=== PATIENT | female | born 1930 | race Caucasian/White ===

== ENCOUNTER 2017-11-13 21:28 | Emergency (ER) | payer OTHER, BC ==
[2017-11-13] MEDS ORDERED: TETANUS & DIPHTHERIA TOX,ADULT 0.5 ML VIAL ONE (23:02)
--- NOTE | 2017-11-13 23:25 | EDPHYS ---
Physician Documentation [facility] Name: Lala Hughes Age: 87 yrs Sex: Female : 1930 Arrival Date: 11/13/2017 Time: 21:29 Bed 23 Private MD: ED Physician Pasquale Mayer HPI: 11/13 22:00 This 87 yrs old Female presents to ER via Wheelchair with complaints of Fall pm1 Injury. 22:00 Details of fall: The patient fell from an upright position, while standing. Onset: The pm1 symptoms/episode began/occurred just prior to arrival. Associated injuries: The patient sustained injury to the head, laceration, 1.5 cm(s), of the forehead. The patient has experienced similar episodes in the past, a few times. The patient has not recently seen a physician. Patient was standing up from the toilet and lost her balance falling forward and hitting her head on the floor. No LOC. No neck pain. Patient with bruise and laceration to right side of the forehead. Historical: - Allergies: 22:35 No Known Allergies; tl3 - Home Meds: 22:35 gabapentin 300 mg Oral cap four times a day [Active]; phenobarbital 32.4 mg Oral tab tl3 once daily [Active]; - PMHx: 22:35 Hypertension; neuropathy; tl3 - PSHx: 22:35 Appendectomy; Hysterectomy; Cholecystectomy; tl3 - Immunization history:: Adult Immunizations not up to date, Last tetanus immunization: > 10 years ago. - Social history:: Smoking status: Patient/guardian denies using tobacco, never smoked. ROS: 22:00 Constitutional: Negative for fever, chills, and weight loss, Eyes: Negative for injury, pm1 pain, redness, and discharge, ENT: Negative for injury, pain, and discharge, Neck: Negative for injury, pain, and swelling, Cardiovascular: Negative for chest pain, palpitations, and edema, Respiratory: Negative for shortness of breath, cough, wheezing, and pleuritic chest pain, Abdomen/GI: Negative for abdominal pain, nausea, vomiting, diarrhea, and constipation, Back: Negative for injury and pain, MS/Extremity: Negative for injury and deformity. 22:00 Skin: Positive for laceration(s), of the forehead. 22:00 Neuro: Positive for headache. Exam: 22:00 Constitutional: This is a well developed, well nourished patient who is awake, alert, pm1 and in no acute distress. 22:00 Eyes: Pupils equal round and reactive to light, extra-ocular motions intact. Lids and lashes normal. Conjunctiva and sclera are non-icteric and not injected. Cornea within normal limits. Periorbital areas with no swelling, redness, or edema. ENT: Nares patent. No nasal discharge, no septal abnormalities noted. Tympanic membranes are normal and external auditory canals are clear. Oropharynx with no redness, swelling, or masses, exudates, or evidence of obstruction, uvula midline. Mucous membranes moist. Neck: Trachea midline, no thyromegaly or masses palpated, and no cervical lymphadenopathy. Supple, full range of motion without nuchal rigidity, or vertebral point tenderness. No Meningismus. Chest/axilla: Normal chest wall appearance and motion. Nontender with no deformity. No lesions are appreciated. Cardiovascular: Regular rate and rhythm with a normal S1 and S2. No gallops, murmurs, or rubs. Normal PMI, no JVD. No pulse deficits. Respiratory: Lungs have equal breath sounds bilaterally, clear to auscultation and percussion. No rales, rhonchi or wheezes noted. No increased work of breathing, no retractions or nasal flaring. Abdomen/GI: Soft, non-tender, with normal bowel sounds. No distension or tympany. No guarding or rebound. No evidence of tenderness throughout. Back: No spinal tenderness. No costovertebral tenderness. Full range of motion. Skin: Warm, dry with normal turgor. Normal color with no rashes, and no evidence of cellulitis. MS/ Extremity: Pulses equal, no cyanosis. Neurovascular intact. Full, normal range of motion. 22:00 Head/face: Noted is a laceration(s), that is linear, 1.5 cm(s), of the forehead. 22:00 Neuro: Orientation: is normal, Mentation: is normal, Motor: moves all fours, Sensation: is normal, no obvious gross deficits. Vital Signs: 22:26 BP 147 / 81; Pulse 83; Resp 16; Pulse Ox 98% on R/A; mt 22:35 BP 151 / 68; Pulse 81; Resp 18; Pulse Ox 99% ; Weight 65.77 kg; Height 5 ft. 1 in. tl3 (154.94 cm); 23:17 BP 152 / 79; Pulse 76; Resp 16; Pulse Ox 100% on R/A; mt 22:35 Body Mass Index 27.40 (65.77 kg, 154.94 cm) tl3 Laceration: 11/14 00:00 Wound Repair of 1.5cm ( 0.6in ) subcutaneous laceration to forehead. Irregularly pm1 shaped.. Distal neuro/vascular/tendon intact. Wound prep: Extensive cleansing by me, Wound irrigation by me, Wound explored extensively, Copious irrigation. Skin closed with 1-0 Adhesive skin closure using Dermabond. Patient tolerated well. MDM: 11/13 21:48 Patient medically screened. pm1 23:24 Data reviewed: vital signs. Data interpreted: infection control coordinator:. Counseling: I had a pm1 detailed discussion with the patient and/or guardian regarding: the historical points, exam findings, and any diagnostic results supporting the discharge/admit diagnosis, radiology results, the need for outpatient follow up, to return to the emergency department if symptoms worsen or persist or if there are any questions or concerns that arise at home. 11/13 21:49 Order name: CT Head C Spine pm1 Administered Medications: 22:48 Drug: Tetanus-Diphtheria Toxoid Adult 0.5 ml {Tar Distillation Supervisor: [employer] ([place]). Exp: tl3 03/21/2020. Lot #: [id number]. } Route: IM; Site: right deltoid; 22:52 Follow up: Response: No adverse reaction tl3 Disposition: 23:57 Co-signature as Attending Physician, Pasquale Mayer MD I agree with the assessment and kdr plan of care. Disposition: 11/13/17 23:25 Discharged to Home. Impression: Unspecified injury of head, Laceration without foreign body of unspecified part of head - forehead. - Condition is Stable. - Discharge Instructions: Tissue Adhesive Wound Care, Head Injury, Adult, Facial Laceration. - Medication Reconciliation Form, Thank You Letter form. - Follow up: Emergency Department; When: As needed; Reason: Worsening of condition. Follow up: Private Physician; When: 2 - 3 days; Reason: Recheck today's complaints, Continuance of care, Re-evaluation by your physician. - Problem is new. - Symptoms have improved. Signatures: Dispatcher [employer] Pasquale Dillard MD MD kdr Marinas, Patrick, ALIYAH HEAD CHAR FILTER TANK TENDER pm1 Cecilia Sol RN RN tl3
--- NOTE | 2017-11-13 23:25 | ER ---
Nurse's Notes [facility] Name: Lala Hughes Age: 87 yrs Sex: Female : 1930 Arrival Date: 11/13/2017 Time: 21:29 Bed 23 Private MD: Diagnosis: Unspecified injury of head;Laceration without foreign body of unspecified part of head-forehead Presentation: 11/13 22:32 Presenting complaint: Patient states: fell and hit corner of tiled shower, no LOC, no tl3 vomiting, 1 inch lac over right eyebrow. Transition of care: patient was not received from another setting of care. Onset of symptoms was November 13, 2017. Care prior to arrival: None. 22:32 Method Of Arrival: Wheelchair tl3 22:32 Acuity: SAM 3 tl3 Triage Assessment: 22:35 General: Appears comfortable, well groomed, well developed, well nourished, Behavior is tl3 calm, cooperative, appropriate for age. Pain: Denies pain. EENT: No signs and/or symptoms were reported regarding the EENT system. Neuro: Level of Consciousness is awake, alert, obeys commands, Oriented to person, place, time, situation, Appropriate for age. Cardiovascular: Heart tones S1 S2 present Capillary refill < 3 seconds. Respiratory: Airway is patent Trachea midline Breath sounds are clear bilaterally. GI: No signs and/or symptoms were reported involving the gastrointestinal system. : No signs and/or symptoms were reported regarding the genitourinary system. Derm: Wound noted above right eyebrow. Musculoskeletal: No signs and/or symptoms reported regarding the musculoskeletal system. Historical: - Allergies: 22:35 No Known Allergies; tl3 - Home Meds: 22:35 gabapentin 300 mg Oral cap four times a day [Active]; phenobarbital 32.4 mg Oral tab tl3 once daily [Active]; - PMHx: 22:35 Hypertension; neuropathy; tl3 - PSHx: 22:35 Appendectomy; Hysterectomy; Cholecystectomy; tl3 - Immunization history:: Adult Immunizations not up to date, Last tetanus immunization: > 10 years ago. - Social history:: Smoking status: Patient/guardian denies using tobacco, never smoked. Assessment: 22:38 General: Appears in no apparent distress. well groomed, well developed, well nourished, tl3 Behavior is calm, cooperative, appropriate for age. Pain: Denies pain. Neuro: Level of Consciousness is awake, alert, obeys commands, Oriented to person, place, time, situation, Appropriate for age. Cardiovascular: Heart tones S1 S2 present. Respiratory: Airway is patent Trachea midline Breath sounds are clear bilaterally. GI: No signs and/or symptoms were reported involving the gastrointestinal system. : No signs and/or symptoms were reported regarding the genitourinary system. EENT: No signs and/or symptoms were reported regarding the EENT system. Derm: Wound noted. Musculoskeletal: No signs and/or symptoms reported regarding the musculoskeletal system. Injury Description: Laceration sustained to above right eyebrow. Vital Signs: 22:26 BP 147 / 81; Pulse 83; Resp 16; Pulse Ox 98% on R/A; mt 22:35 BP 151 / 68; Pulse 81; Resp 18; Pulse Ox 99% ; Weight 65.77 kg; Height 5 ft. 1 in. tl3 (154.94 cm); 23:17 BP 152 / 79; Pulse 76; Resp 16; Pulse Ox 100% on R/A; mt 22:35 Body Mass Index 27.40 (65.77 kg, 154.94 cm) tl3 ED Course: 21:29 Patient arrived in ED. am2 21:44 Ronald Briones NP is PHCP. pm1 21:44 Pasquale Mayer MD is Attending Physician. pm1 22:[address] via wheelchair. jayden 22:20 Cecilia Sol, RN is Primary Nurse. tl3 22:21 CT Head C Spine In Process Unspecified. EDMS 22:34 Triage completed. tl3 22:35 Arm band placed on right wrist. tl3 Administered Medications: 22:48 Drug: Tetanus-Diphtheria Toxoid Adult 0.5 ml {Form Building Supervisor: [employer] ([employer] [place] - [employer]). Exp: tl3 03/21/2020. Lot #: [id number]. } Route: IM; Site: right deltoid; 22:52 Follow up: Response: No adverse reaction tl3 Outcome: 23:25 Discharge ordered by . pm1 23:39 Patient left the ED. tl3 Signatures: Dispatcher [employer] EDMS Ronald Briones NP PRESCHOOL AIDE pm1 Giles Low Amanda am2 Sims, Karen mt [place], Cecilia, RN RN tl3
[2017-11-13] MEDS ORDERED: DERMABOND SKIN ADHESIVE TOP ONE ×2 (23:29→23:36)
--- NOTE | 2017-11-14 08:07 | RAD REPORT ---
EXAM DESCRIPTION: CT - [id number] - 11/14/2017 6:36 am CLINICAL HISTORY: Trauma, head and neck injury. COMPARISON: 08/14/2016, 07/10/2016 TECHNIQUE: Axial 5 mm thick images of the head were obtained. Axial 2 mm thick images of the cervical spine were obtained with sagittal and coronal reconstruction images generated and reviewed. All CT scans are performed using dose optimization technique as appropriate and may include automated exposure control or mA/KV adjustment according to patient size. FINDINGS: CT HEAD WITHOUT CONTRAST: No acute hemorrhage, hydrocephalus or extra-axial collection is identified.Advanced generalized brain atrophy is present with advanced periventricular and deep white matter chronic microvascular ischemi c changes.No areas of brain edema or midline shift. The paranasal sinuses and mastoids are clear.The calvarium is intact. Right frontal scalp hematoma no sebastian. CT CERVICAL SPINE WITHOUT CONTRAST: No fracture or subluxation.Multilevel degenerative spondylosis throughout the cervical spine, similar to comparative studies.No prevertebral soft tissues swelling is identified. IMPRESSION: No acute intracranial or cervical spine findings. Prominent cervical spondylosis.
== END 2017-11-13 23:39 | disposition home or self-care (01) ==
LOC: ER 21:28
PROC: 0JQ10ZZ Repair Face Subcutaneous Tissue and Fascia, Open Approach (ICD-10-PCS; principal; 2017-11-13)
DX: S01.81XA Laceration without foreign body of other part of head, initial encounter (principal); W18.39XA Other fall on same level, initial encounter; Y93.89 Activity, other specified; Y92.002 Bathroom of unspecified non-institutional (private) residence as the place of occurrence of the external cause; Z23 Encounter for immunization; I10 Essential (primary) hypertension
CPT/HCPCS: 12011; 70450; 72125; 90714; 99284; G0168

== ENCOUNTER 2018-03-12 00:54 | Emergency (ER) | payer OTHER, BC ==
[2018-03-12] MEDS ORDERED: LIDOCAINE 1% W/EPI 1:100,000 MDV 50 ML VIAL ONE (02:09)
--- NOTE | 2018-03-12 03:32 | ER ---
Nurse's Notes [facility] Name: Lala Hughes Age: 87 yrs Sex: Female : 1930 Arrival Date: 03/12/2018 Time: 00:57 Bed 20 Private MD: Gerardo Mariscal C Diagnosis: Laceration without foreign body of other part of head Presentation: 03/12 01:06 Presenting complaint: Child states: pt was using walker when she tripped fell forward ak1 hitting her head on tile floor at about midnight. pt with hematoma to right side of head, laceration to right side of head. pt c/o right arm pain and left lower leg pain. Care prior to arrival: None. Mechanism of Injury: Fall from standing position. Trauma event details: Injury occurred in the [facility], Injury occurred: at home. Injury occurred: March 12, 2018 Injury occurred at: 00:00. 01:06 Acuity: SAM 3 ak1 01:06 Method Of Arrival: Wheelchair ak1 01:11 Transition of care: patient was not received from another setting of care. Onset of ak1 symptoms was March 12, 2018. Risk Assessment: Do you want to hurt yourself or someone else? Patient reports no desire to harm self or others. Initial Sepsis Screen: Does the patient meet any 2 criteria? No. Patient's initial sepsis screen is negative. Does the patient have a suspected source of infection? No. Patient's initial sepsis screen is negative. Triage Assessment: 01:12 General: Appears in no apparent distress. Behavior is cooperative. Pain: Complains of ak1 pain in right arm and left leg, head. Trauma Activation: Physician: ED Physician; Name: Dr. Mares; Notified At: ; Arrived At: Physician: General Surgeon; Name: ; Notified At: ; Arrived At: Physician: Radiology; Name: ; Notified At: ; Arrived At: Physician: Respiratory; Name: ; Notified At: ; Arrived At: Physician: Lab; Name: ; Notified At: ; Arrived At: Trauma Activation: Alert Physician: ED Physician; Name: Dr. Mares; Notified At: 01:00; Arrived At: 01:00 Physician: General Surgeon; Name: ; Notified At: 01:00; Arrived At: Physician: Radiology; Name: Andrew; Notified At: 01:00; Arrived At: 01:02 Physician: Respiratory; Name: ; Notified At: 01:00; Arrived At: Physician: Lab; Name: Sherry; Notified At: 01:00; Arrived At: 01:01 Historical: - Allergies: 01:11 No Known Allergies; ak1 - Home Meds: 01:11 gabapentin 300 mg Oral cap four times a day [Active]; phenobarbital 32.4 mg Oral tab ak1 once daily [Active]; - PMHx: 01:11 Hypertension; neuropathy; ak1 - PSHx: 01:11 Hysterectomy; Cholecystectomy; Appendectomy; ak1 - Immunization history:: Last tetanus immunization: up to date. - Immunization history: Last tetanus immunization: unknown. - Social history:: Smoking status: Patient/guardian denies using tobacco. - Ebola Screening: : No symptoms or risks identified at this time. Screenin:06 Abuse screen: Denies threats or abuse. Denies injuries from another. Tuberculosis ak1 screening: No symptoms or risk factors identified. 01:12 Nutritional screening: No deficits noted. Fall Risk Fall in past 12 months (25 points). ak1 Ambulatory Aid- Crutches/Cane/Walker (15 pts). Gait- Weak (10 pts.). Primary Survey: 01:06 A: Airway: patent. Breathing/Chest: Respiratory pattern: regular. Circulation: Skin ak1 color: pink, Skin temperature: warm, dry. Disability Alert. 03:00 Reassessment Breathing/Chest Respiratory pattern Regular Respiratory effort Spontaneous jd3 Breath sounds Clear Chest inspection Symmetrical. Secondary Survey: 01:10 HEENT: Head Other edema, ecchymosis, bleeding to right brow. Gastrointestinal: No bb deficits noted. : No signs and/or symptoms were reported regarding the genitourinary system. Musculoskeletal: Circulation, motion, and sensation intact. Assessment: 01:11 General: Appears uncomfortable, Behavior is calm, cooperative, anxious. Pain: Complains jd3 of pain in forehead, right arm and right leg Quality of pain is described as aching. Neuro: Level of Consciousness is awake, alert, obeys commands, Oriented to person, place, time, situation, Appropriate for age. Cardiovascular: Heart tones S1 S2 present Capillary refill < 3 seconds Patient's skin is warm and dry. Respiratory: Airway is patent Respiratory effort is even, unlabored, Respiratory pattern is regular, symmetrical, Breath sounds are clear bilaterally. GI: Abdomen is round Bowel sounds present X 4 quads. Abd is soft and non tender X 4 quads. : No signs and/or symptoms were reported regarding the genitourinary system. EENT: No signs and/or symptoms were reported regarding the EENT system. Derm: Skin is intact, Skin is dry, Skin is normal, Skin temperature is warm. Musculoskeletal: Circulation, motion, and sensation intact. Range of motion: intact in all extremities. Injury Description: Laceration sustained to forehead above right eye. is 0.5 to 2.5 cm long, bleeding moderately, a small amount of bleeding noted at this time. 01:58 Reassessment: Patient appears in no apparent distress at this time. Patient and/or jd3 family updated on plan of care and expected duration. Pain level reassessed. Patient is alert, oriented x 3, equal unlabored respirations, skin warm/dry/pink. 02:59 Reassessment: Patient appears in no apparent distress at this time. Patient and/or jd3 family updated on plan of care and expected duration. Pain level reassessed. Patient is alert, oriented x 3, equal unlabored respirations, skin warm/dry/pink. 03:42 Reassessment: Patient appears in no apparent distress at this time. Patient and/or jd3 family updated on plan of care and expected duration. Pain level reassessed. Patient is alert, oriented x 3, equal unlabored respirations, skin warm/dry/pink. pt and family reported understanding of discharge instructions. Vital Signs: 01:06 BP 107 / 82; Pulse 97; Resp 20; Pulse Ox 100% on R/A; Weight 68.04 kg (R); Height 4 ft. ak1 11 in. (149.86 cm) (R); Pain 5/10; 01:15 Temp 98.2(O); jd3 01:58 BP 155 / 60; Pulse 79; Resp 16 S; Pulse Ox 98% on R/A; jd3 02:59 BP 179 / 86; Pulse 80; Resp 17 S; Pulse Ox 98% on R/A; jd3 01:06 Body Mass Index 30.30 (68.04 kg, 149.86 cm) ak1 [place] Coma Score: 01:06 Eye Response: spontaneous(4). Verbal Response: oriented(5). Motor Response: obeys ak1 commands(6). Total: 15. Trauma Score (Adult): 01:06 Eye Response: spontaneous(1); Verbal Response: oriented(1); Motor Response: obeys ak1 commands(2); Systolic BP: > 89 mm Hg(4); Respiratory Rate: 10 to 29 per min(4); [place] Score: 15; Trauma Score: 12 ED Course: 00:57 Patient arrived in ED. es 00:58 Gerardo Mariscal MD is Private Physician. es 01:06 Yon Mares MD is Attending Physician. gs 01:06 Patient has correct armband on for positive identification. Bed in low position. Call ak1 light in reach. Side rails up X2. Adult w/ patient. 01:06 Patient maintains SpO2 saturation greater than 95% on room air. ak1 01:07 Triage completed. ak1 01:10 Stan Staley, RN is Primary Nurse. jd3 01:11 Arm band placed on Patient placed in an exam room, on a stretcher, on pulse oximetry, ak1 Patient notified of wait time. 01:13 Thermoregulation: warm blanket given to patient. ak1 01:[address] via stretcher. kw1 01:37 CT completed. Patient tolerated procedure well. Patient moved back from CT. kw1 01:39 CT Head C Spine In Process Unspecified. EDMS 02:59 Ice pack to injury. jd3 03:43 Assist provider with laceration repair on above right eye that was 2.5 cm. or less jd3 using sutures. Set up tray. Performed by Yon Mares MD Dressed with band aid, Patient tolerated well. Patient did not have IV access during this emergency room visit. Administered Medications: 02:53 Drug: Lidocaine-Epinephrine -1%: (1:100,000) 5 ml {Note: admiinisted by Dr. Mares..} jd3 Volume: 20 ml; Route: Infiltration; 03:44 Follow up: Response: No adverse reaction jd3 Intake: 03:44 PO: 0ml; Total: 0ml. jd3 Output: 03:44 Urine: 0ml; Total: 0ml. jd3 Outcome: 03:31 Discharge ordered by . toisn 03:43 Discharged to home via wheelchair, with family. jd3 03:43 Condition: stable 03:43 Discharge instructions given to patient, family, Instructed on discharge instructions, follow up and referral plans. Demonstrated understanding of instructions, follow-up care. 03:43 Patient's length of stay in the Emergency Department was greater than 2 hours. waiting for diagnostic tests.Patient's length of stay extended due to 03:46 Patient left the ED. jd3 Signatures: Dispatcher [employer] EDMS Nia Larose Brenda RN RN Ashley Ghotra RN RN ak1 Yon Mares MD MD gs Davies, Jonathon, RN RN jd3 Wilhelm, Kimberly kw1 Corrections: (The following items were deleted from the chart) 03:45 03:42 Reassessment: Patient appears in no apparent distress at this time. Patient jd3 and/or family updated on plan of care and expected duration. Pain level reassessed. Patient is alert, oriented x 3, equal unlabored respirations, skin warm/dry/pink. jd3 03:46 03:43 No provider procedures requiring assistance completed. jd3 jd3
--- NOTE | 2018-03-12 03:32 | EDPHYS ---
Physician Documentation [facility] Name: Lala Hughes Age: 87 yrs Sex: Female : 1930 Arrival Date: 03/12/2018 Time: 00:57 Bed 20 Private MD: Gerardo Mariscal C ED Physician Yon Mares HPI: 03/12 02:38 This 87 yrs old Female presents to ER via Wheelchair with complaints of Fall gs Injury, Facial Injury, Head Injury-Adult. 02:38 Details of fall: The patient fell from a supine position, while transferring. Onset: gs The symptoms/episode began/occurred acutely, just prior to arrival. Associated injuries: The patient sustained injury to the head, hematoma, laceration, 2.5 cm(s), of the forehead. Severity of symptoms: At their worst the symptoms were moderate, in the emergency department the symptoms are unchanged. The patient has experienced similar episodes in the past, a few times. The patient has not recently seen a physician. Historical: - Allergies: 01:11 No Known Allergies; ak1 - Home Meds: 01:11 gabapentin 300 mg Oral cap four times a day [Active]; phenobarbital 32.4 mg Oral tab ak1 once daily [Active]; - PMHx: 01:11 Hypertension; neuropathy; ak1 - PSHx: 01:11 Hysterectomy; Cholecystectomy; Appendectomy; ak1 - Immunization history:: Last tetanus immunization: up to date. - Immunization history: Last tetanus immunization: unknown. - Social history:: Smoking status: Patient/guardian denies using tobacco. - Ebola Screening: : No symptoms or risks identified at this time. ROS: 02:38 All other systems are negative. gs Exam: 02:38 Eyes: Pupils equal round and reactive to light, extra-ocular motions intact. Lids and gs lashes normal. Conjunctiva and sclera are non-icteric and not injected. Cornea within normal limits. Periorbital areas with no swelling, redness, or edema. ENT: Nares patent. No nasal discharge, no septal abnormalities noted. Tympanic membranes are normal and external auditory canals are clear. Oropharynx with no redness, swelling, or masses, exudates, or evidence of obstruction, uvula midline. Mucous membranes moist. Chest/axilla: Normal chest wall appearance and motion. Nontender with no deformity. No lesions are appreciated. Cardiovascular: Regular rate and rhythm with a normal S1 and S2. No gallops, murmurs, or rubs. Normal PMI, no JVD. No pulse deficits. Respiratory: Lungs have equal breath sounds bilaterally, clear to auscultation and percussion. No rales, rhonchi or wheezes noted. No increased work of breathing, no retractions or nasal flaring. Abdomen/GI: Soft, non-tender, with normal bowel sounds. No distension or tympany. No guarding or rebound. No evidence of tenderness throughout. Back: No spinal tenderness. No costovertebral tenderness. Full range of motion. Skin: Warm, dry with normal turgor. Normal color with no rashes, no lesions, and no evidence of cellulitis. MS/ Extremity: Pulses equal, no cyanosis. Neurovascular intact. Full, normal range of motion. Neuro: Awake and alert, GCS 15, oriented to person, place, time, and situation. Cranial nerves II-XII grossly intact. Motor strength 5/5 in all extremities. Sensory grossly intact. Cerebellar exam normal. Normal gait. 02:38 Constitutional: The patient appears alert, awake. 02:38 Head/face: Noted is hematoma, that is moderate, of the forehead, a laceration(s), that is superficial, 2.5 cm(s). 02:38 Neck: C-spine: vertebral tenderness, that is mild, appreciated at C4 and C5. Vital Signs: 01:06 BP 107 / 82; Pulse 97; Resp 20; Pulse Ox 100% on R/A; Weight 68.04 kg (R); Height 4 ft. ak1 11 in. (149.86 cm) (R); Pain 5/10; 01:15 Temp 98.2(O); jd3 01:58 BP 155 / 60; Pulse 79; Resp 16 S; Pulse Ox 98% on R/A; jd3 02:59 BP 179 / 86; Pulse 80; Resp 17 S; Pulse Ox 98% on R/A; jd3 01:06 Body Mass Index 30.30 (68.04 kg, 149.86 cm) ak1 Alex Coma Score: 01:06 Eye Response: spontaneous(4). Verbal Response: oriented(5). Motor Response: obeys ak1 commands(6). Total: 15. Trauma Score (Adult): 01:06 Eye Response: spontaneous(1); Verbal Response: oriented(1); Motor Response: obeys ak1 commands(2); Systolic BP: > 89 mm Hg(4); Respiratory Rate: 10 to 29 per min(4); Alex Score: 15; Trauma Score: 12 Laceration: 02:38 Wound Repair of 3cm ( 1.2in ) subcutaneous laceration to forehead. Distal gs neuro/vascular/tendon intact. Anesthesia: Local anesthetic administered with 5 mls of 1% lidocaine w/ Epi. Wound prep: Simple cleansing. Skin closed with 4 4-0 Prolene using simple sutures and sterile technique. Patient tolerated well. MDM: 01:06 Patient medically screened. 02:38 Differential diagnosis: closed head injury, fracture, laceration. Data reviewed: vital gs signs, nurses notes. Response to treatment: the patient's symptoms have markedly improved after treatment, and as a result, I will discharge patient. 03/12 01:09 Order name: CT Head C Spine 03/12 03:29 Interpretation: No acute disease. Administered Medications: 02:53 Drug: Lidocaine-Epinephrine -1%: (1:100,000) 5 ml {Note: admiinisted by Dr. Mares..} jd3 Volume: 20 ml; Route: Infiltration; 03:44 Follow up: Response: No adverse reaction jd3 Disposition: 03/12/18 03:31 Discharged to Home. Impression: Laceration without foreign body of other part of head. - Condition is Stable. - Discharge Instructions: Hematoma, Laceration Care, Adult, [id number]. - Medication Reconciliation Form, Thank You Letter, Antibiotic Education, Prescription Opioid Use form. - Follow up: Private Physician; When: 7 - 10 days; Reason: Staple/Suture removal. Signatures: Dispatcher [employer] Ashley West RN RN ak1 Yon Mares MD MD gs Davies, Jonathon, RN RN jd3 Corrections: (The following items were deleted from the chart) 03:46 03:31 03/12/2018 03:31 Discharged to Home. Impression: Laceration without foreign body jd3 of other part of head. Condition is Stable. Forms are Medication Reconciliation Form, Thank You Letter, Antibiotic Education, Prescription Opioid Use. Follow up: Private Physician; When: 7 - 10 days; Reason: Staple/Suture removal. gs
--- NOTE | 2018-03-12 09:36 | RAD REPORT ---
EXAM DESCRIPTION: CT - Head C Spine Mpr Wo Con - 03/12/2018 7:12 am CLINICAL HISTORY: Head and neck injury status post fall. Head and neck pain COMPARISON: October 2017 TECHNIQUE: Computed axial tomography of the head and cervical spine was obtained. Sagittal and coronal reconstruction was performed.A preliminary report was generated by [employer] and reviewed prior to this dictation All CT scans are performed using dose optimization technique as appropriate and may include automated exposure control or mA/KV adjustment according to patient size. FINDINGS: A right frontal scalp hematoma is present. An underlying skull fracture is not seen. An intracranial bleed is not seen. The ventricles are normal in caliber. An extra-axial fluid collect ion is not noted.Fluid within the visualized sinuses and mastoids is not seen A cervical fracture is not visualized. No dislocation is noted. 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 Mild to moderate foraminal stenosis is p resent. IMPRESSION: No acute intracranial abnormality is seen. A cervical fracture is not visualized. If the patient continues to have symptoms to suggest intracra nial /spinal cord pathology then MRI would be recommended
== END 2018-03-12 03:46 | disposition home or self-care (01) ==
LOC: ER 00:54
PROC: 0JQ10ZZ Repair Face Subcutaneous Tissue and Fascia, Open Approach (ICD-10-PCS; principal; 2018-03-12)
DX: S01.81XA Laceration without foreign body of other part of head, initial encounter (principal); I10 Essential (primary) hypertension; W19.XXXA Unspecified fall, initial encounter; Y93.89 Activity, other specified; Y92.9 Unspecified place or not applicable
CPT/HCPCS: 70450; 72125; 99285

== ENCOUNTER 2018-05-01 23:48 | Emergency (ER) | payer OTHER, BC ==
[2018-05-02] MEDS ORDERED: CEPHALEXIN 250 MG CAP ONE (00:53)
--- NOTE | 2018-05-02 01:42 | EDPHYS ---
Physician Documentation [facility] Name: Lala Hughes Age: 88 yrs Sex: Female : 1930 Arrival Date: 05/01/2018 Time: 23:49 Bed 26 Private MD: Gerardo Mariscal C ED Physician Michael Carbajal HPI: 05/02 00:44 This 88 yrs old Female presents to ER via Wheelchair with complaints of Fall brooklynn Injury, Head Injury-Adult. 00:44 Details of fall: The patient fell from an upright position, while walking. Onset: The brooklynn symptoms/episode began/occurred just prior to arrival. Associated injuries: The patient sustained injury to the head, hematoma, laceration, pain. Severity of symptoms: At their worst the symptoms were very mild, in the emergency department the symptoms are unchanged. The patient has experienced similar episodes in the past, multiple times. Historical: - Allergies: 00:15 No Known Allergies; bb - Home Meds: 00:15 gabapentin 300 mg Oral cap four times a day [Active]; phenobarbital 32.4 mg Oral tab bb once daily [Active]; - PMHx: 00:15 Hypertension; neuropathy; bb - PSHx: 00:15 Hysterectomy; Cholecystectomy; Appendectomy; bb - Immunization history: Last tetanus immunization: unknown. - Social history:: Smoking status: Patient/guardian denies using tobacco, Patient/guardian denies using alcohol, street drugs. - Ebola Screening: : No symptoms or risks identified at this time. - Family history:: not pertinent. ROS: 00:44 Constitutional: Negative for fever, chills, and weight loss, Eyes: Negative for injury, brooklynn pain, redness, and discharge, ENT: Negative for injury, pain, and discharge, Neck: Negative for injury, pain, and swelling, Cardiovascular: Negative for chest pain, palpitations, and edema, Respiratory: Negative for shortness of breath, cough, wheezing, and pleuritic chest pain, Abdomen/GI: Negative for abdominal pain, nausea, vomiting, diarrhea, and constipation, Back: Negative for injury and pain, : Negative for injury, bleeding, discharge, and swelling, MS/Extremity: Negative for injury and deformity, Neuro: Negative for headache, weakness, numbness, tingling, and seizure, Psych: Negative for depression, anxiety, suicide ideation, homicidal ideation, and hallucinations, Allergy/Immunology: Negative for hives, rash, and allergies, Endocrine: Negative for neck swelling, polydipsia, polyuria, polyphagia, and marked weight changes, Hematologic/Lymphatic: Negative for swollen nodes, abnormal bleeding, and unusual bruising. 00:44 Skin: Positive for laceration(s), of the left occipital area. Exam: 00:44 Constitutional: This is a well developed, well nourished patient who is awake, alert, brooklynn and in no acute distress. Head/Face: Normocephalic, atraumatic. Eyes: Pupils equal round and reactive to light, extra-ocular motions intact. Lids and lashes normal. Conjunctiva and sclera are non-icteric and not injected. Cornea within normal limits. Periorbital areas with no swelling, redness, or edema. ENT: Nares patent. No nasal discharge, no septal abnormalities noted. Tympanic membranes are normal and external auditory canals are clear. Oropharynx with no redness, swelling, or masses, exudates, or evidence of obstruction, uvula midline. Mucous membranes moist. Neck: Trachea midline, no thyromegaly or masses palpated, and no cervical lymphadenopathy. Supple, full range of motion without nuchal rigidity, or vertebral point tenderness. No Meningismus. Chest/axilla: Normal chest wall appearance and motion. Nontender with no deformity. No lesions are appreciated. Cardiovascular: Regular rate and rhythm with a normal S1 and S2. No gallops, murmurs, or rubs. Normal PMI, no JVD. No pulse deficits. Respiratory: Lungs have equal breath sounds bilaterally, clear to auscultation and percussion. No rales, rhonchi or wheezes noted. No increased work of breathing, no retractions or nasal flaring. Abdomen/GI: Soft, non-tender, with normal bowel sounds. No distension or tympany. No guarding or rebound. No evidence of tenderness throughout. Back: No spinal tenderness. No costovertebral tenderness. Full range of motion. Female : Normal external genitalia. MS/ Extremity: Pulses equal, no cyanosis. Neurovascular intact. Full, normal range of motion. Neuro: Awake and alert, GCS 15, oriented to person, place, time, and situation. Cranial nerves II-XII grossly intact. Motor strength 5/5 in all extremities. Sensory grossly intact. Cerebellar exam normal. Normal gait. Psych: Awake, alert, with orientation to person, place and time. Behavior, mood, and affect are within normal limits. 00:44 Skin: injury, laceration(s), the wound is approximately 3 cm(s), with a depth of .5 cm(s), of the left occipital area. Vital Signs: 00:00 BP 182 / 93; Pulse 87; Resp 20 S; Temp 98.5(O); Pulse Ox 97% on R/A; Weight 68.04 kg bb (R); Height 5 ft. 1 in. (154.94 cm) (R); Pain 10/10; 01:16 BP 160 / 88; Pulse 78; Resp 14; Pulse Ox 98% ; bp 01:56 BP 179 / 90; Pulse 82; Resp 14; Pulse Ox 98% ; bp 00:00 Body Mass Index 28.34 (68.04 kg, 154.94 cm) bb Alex Coma Score: 00:00 Eye Response: spontaneous(4). Verbal Response: oriented(5). Motor Response: obeys bb commands(6). Total: 15. Trauma Score (Adult): 00:00 Eye Response: spontaneous(1); Verbal Response: oriented(1); Motor Response: obeys bb commands(2); Systolic BP: > 89 mm Hg(4); Respiratory Rate: 10 to 29 per min(4); Alex Score: 15; Trauma Score: 12 Laceration: 00:47 Wound Repair of 2.5cm ( 1.0in ) subcutaneous laceration to left occipital area. brooklynn Irregularly shaped.. Distal neuro/vascular/tendon intact. Anesthesia: none with 0 mls of none. Wound prep: Simple cleansing by me. Skin closed with 3 1-0 Elizabeth using staple gun. Dressed with pressure dressing. Patient tolerated well. MDM: 00:11 Patient medically screened. [facility] 00:44 Data reviewed: vital signs, nurses notes, lab test result(s), radiologic studies, CT brooklynn scan. 05/02 00:43 Order name: CT Head C Spine [facility] 05/02 00:20 Order name: Setup Staple Remover; Complete Time: 00:20 tl3 05/02 00:20 Order name: Suture Tray Setup; Complete Time: 00:21 tl3 Administered Medications: 00:49 Drug: KeFLEX 500 mg Route: PO; bp 00:49 Follow up: Response: No adverse reaction bp Disposition: 05/02/18 01:41 Discharged to Home. Impression: Laceration without foreign body of other part of head, Repeated falls. - Condition is Stable. - Discharge Instructions: Facial or Scalp Contusion, Head Injury, Adult, Fall Prevention in the Home, Laceration Care, Adult, Laceration Care, Adult, [id number], Fall Prevention in the Home, [id number]-[id number]-Gdcc, Head Injury, Adult, [id number], Facial or Scalp Contusion, [id number]-dz-[id number]. - Prescriptions for Keflex 500 mg Oral Capsule - take 1 capsule by ORAL route every 6 hours for 10 days; 28 capsule. - Medication Reconciliation Form, Thank You Letter, Antibiotic Education, Prescription Opioid Use form. - Follow up: A Mariscal; When: 2 - 3 days; Reason: Recheck today's complaints, Continuance of care, Re-evaluation by your physician. - Problem is new. - Symptoms have improved. Signatures: Dispatcher [employer] EDMS Michael Carbajal MD MD cha Ballard, Brenda, RN RN Graham Wheeler, SCOTT RN Cecilia Hyde RN RN tl3 Corrections: (The following items were deleted from the chart) 01:58 01:41 05/02/2018 01:41 Discharged to Home. Impression: Laceration without foreign body bp of other part of head; Repeated falls. Condition is Stable. Discharge Instructions: Facial or Scalp Contusion, Head Injury, Adult, Fall Prevention in the Home, Laceration Care, Adult, Laceration Care, Adult, Talj-uf-[id number], Fall Prevention in the Home, Sebm-ms-Aect, Head Injury, Adult, [id number], Facial or Scalp Contusion, Eoly-rb-Dtmb. Prescriptions for Keflex 500 mg Oral Capsule - take 1 capsule by ORAL route every 6 hours for 10 days; 28 capsule. and Forms are Medication Reconciliation Form, Thank You Letter, Antibiotic Education, Prescription Opioid Use. Follow up: A Mariscal; When: 2 - 3 days; Reason: Recheck today's complaints, Continuance of care, Re-evaluation by your physician. Problem is new. Symptoms have improved. brooklynn
--- NOTE | 2018-05-02 01:42 | ER ---
Nurse's Notes [facility] Name: Lala Hughes Age: 88 yrs Sex: Female : 1930 Arrival Date: 05/01/2018 Time: 23:49 Bed 26 Private MD: Gerardo Mariscal C Diagnosis: Laceration without foreign body of other part of head;Repeated falls Presentation: 05/02 00:09 Presenting complaint: Child states: pt was found on the floor at 11pm with a laceration tl3 to the back of her head, no LOC, no vomiting AAO X 3, no active bleeding. Care prior to arrival: None. Mechanism of Injury: Fall from standing position. Trauma event details: Injury occurred in the [facility]. 00:09 Acuity: SAM 3 tl3 00:09 Method Of Arrival: Wheelchair tl3 00:10 Presenting complaint: daughter states she found pt lying on bathroom floor with bb laceration to the back of her head and she "was out of it" but denies LOC. Care prior to arrival: None. Mechanism of Injury: Fall from standing position. Trauma event details: Injury occurred in the [facility], Injury occurred: at home. Injury occurred: May 02, 2018. 00:10 Acuity: SAM 2 bb 00:10 Method Of Arrival: Wheelchair bb 00:14 Transition of care: patient was not received from another setting of care. Onset of bb symptoms was May 02, 2018. Risk Assessment: Do you want to hurt yourself or someone else? Patient reports no desire to harm self or others. Initial Sepsis Screen: Does the patient meet any 2 criteria? No. Patient's initial sepsis screen is negative. Does the patient have a suspected source of infection? No. Patient's initial sepsis screen is negative. Trauma Activation: Alert Physician: ED Physician; Name: ; Notified At: ; Arrived At: Physician: General Surgeon; Name: ; Notified At: ; Arrived At: Physician: Radiology; Name: ; Notified At: ; Arrived At: Physician: Respiratory; Name: ; Notified At: ; Arrived At: Physician: Lab; Name: ; Notified At: ; Arrived At: Historical: - Allergies: 00:15 No Known Allergies; bb - Home Meds: 00:15 gabapentin 300 mg Oral cap four times a day [Active]; phenobarbital 32.4 mg Oral tab bb once daily [Active]; - PMHx: 00:15 Hypertension; neuropathy; bb - PSHx: 00:15 Hysterectomy; Cholecystectomy; Appendectomy; bb - Immunization history: Last tetanus immunization: unknown. - Social history:: Smoking status: Patient/guardian denies using tobacco, Patient/guardian denies using alcohol, street drugs. - Ebola Screening: : No symptoms or risks identified at this time. - Family history:: not pertinent. Screenin:00 Abuse screen: Denies threats or abuse. Tuberculosis screening: No symptoms or risk bb factors identified. 00:16 Nutritional screening: No deficits noted. Fall Risk Fall in past 12 months (25 points). tl3 Primary Survey: 00:09 Breathing/Chest: Respiratory pattern: regular, Respiratory effort: spontaneous, Breath tl3 sounds: clear, Chest inspection: symmetrical rise and fall of the chest. Circulation: Skin color: pink, Skin temperature: warm. Disability Alert. 01:57 Reassessment Airway Airway Patent Breathing/Chest Respiratory pattern Regular bp Respiratory effort Spontaneous Unlabored Circulation Color [place] Temperature Warm Dry Disability Alert. Secondary Survey: 00:09 HEENT: Head Face No injury/deformity Eyes: No injury or deformity noted. to bilateral tl3 eyes. Gastrointestinal: No deficits noted. : No deficits noted. Musculoskeletal: No deficits noted. Injury Description: Laceration sustained to back of scalp. Assessment: 00:09 General: Appears in no apparent distress. comfortable, slender, well groomed, well tl3 developed, well nourished, Behavior is calm, cooperative, appropriate for age. Pain: Complains of pain in back of head. Neuro: Level of Consciousness is awake, alert, obeys commands, Oriented to person, place, time, situation, Appropriate for age. EENT: No signs and/or symptoms were reported regarding the EENT system. Cardiovascular: Reports. Respiratory: Airway is patent Respiratory effort is even, unlabored, Respiratory pattern is regular, symmetrical. GI: No signs and/or symptoms were reported involving the gastrointestinal system. : No signs and/or symptoms were reported regarding the genitourinary system. Derm: Wound noted back of scalp. Musculoskeletal: No signs and/or symptoms reported regarding the musculoskeletal system. Injury Description: Laceration sustained to back of scalp is clean, 2.6 to 7.5 cm long, not bleeding, was sustained 30-60 minutes ago. 01:05 Reassessment: report given to Graham. tl3 01:05 Reassessment: RECD REPORT FROM WHITNEY CHAVEZ. PT TO CT WITH FLAVOR TANK TENDER, ROMULO PLACED FOR bp WOUND CLOSURE. 01:14 Reassessment: PT RETURNED FROM CT. RESULTS PENDING. bp Vital Signs: 00:00 BP 182 / 93; Pulse 87; Resp 20 S; Temp 98.5(O); Pulse Ox 97% on R/A; Weight 68.04 kg bb (R); Height 5 ft. 1 in. (154.94 cm) (R); Pain 10/10; 01:16 BP 160 / 88; Pulse 78; Resp 14; Pulse Ox 98% ; bp 01:56 BP 179 / 90; Pulse 82; Resp 14; Pulse Ox 98% ; bp 00:00 Body Mass Index 28.34 (68.04 kg, 154.94 cm) bb Alex Coma Score: 00:00 Eye Response: spontaneous(4). Verbal Response: oriented(5). Motor Response: obeys bb commands(6). Total: 15. Trauma Score (Adult): 00:00 Eye Response: spontaneous(1); Verbal Response: oriented(1); Motor Response: obeys bb commands(2); Systolic BP: > 89 mm Hg(4); Respiratory Rate: 10 to 29 per min(4); Batson Score: 15; Trauma Score: 12 ED Course: 05/01 23:49 Patient arrived in ED. al2 23:50 Gerardo Mariscal MD is Private Physician. al2 23:59 Graham Thomason, RN is Primary Nurse. bp 05/02 00:00 Patient has correct armband on for positive identification. Bed in low position. Call bb light in reach. Side rails up X2. Adult w/ patient. 00:00 Patient maintains SpO2 saturation greater than 95% on room air. bb 00:11 Michael Carbajal MD is Attending Physician. brooklynn 00:12 Triage completed. tl3 00:15 Family accompanied patient. bb 00:15 Arm band placed on. bp 00:15 Thermoregulation: warm blanket given to patient. bp 00:16 No provider procedures requiring assistance completed. Wound care: to laceration was tl3 cleaned with soap and water, Patient tolerated well. 01:15 CT Head C Spine In Process Unspecified. EDMS 01:41 Gerardo Mariscal MD is Referral Physician. brooklynn 01:57 Patient did not have IV access during this emergency room visit. bp Administered Medications: 00:49 Drug: KeFLEX 500 mg Route: PO; bp 00:49 Follow up: Response: No adverse reaction bp Intake: 00:00 PO: 0ml; Total: 0ml. bb Outcome: 01:41 Discharge ordered by . brooklynn 01:56 Discharged to home via wheelchair, with family. bp 01:56 Condition: stable 01:56 Patient's length of stay was not longer than 2 hours. 01:58 Discharge instructions given to patient, family, Instructed on discharge instructions, bp follow up and referral plans. Demonstrated understanding of instructions, follow-up care. 01:58 Patient left the ED. bp Signatures: Dispatcher [employer] EDNM Michael Carbajal MD MD cha Ballard, Brenda, RN RN Graham Wheeler, RN RN Ina Lyons Tammy RN RN tl3
--- NOTE | 2018-05-02 09:36 | RAD REPORT ---
EXAM DESCRIPTION: CT - Head C Spine Mpr Wo Con - 05/02/2018 5:24 am CLINICAL HISTORY: Head and neck injury status post fall. Head and neck pain COMPARISON: February 2018 TECHNIQUE: Computed axial tomography of the head and cervical spine was obtained. Sagittal and coronal reconstruction was performed. Preliminary report was generated by [employer] and reviewed prior to this dictation All CT scans are performed using dose optimization technique as appropriate and may include automated exposure control or mA/KV adjustment according to patient size. FINDINGS: Right parietal scalp hematoma is present without underlying skull fracture. An intracranial bleed is not seen. Prominence of the ventricles is unchanged. Cerebral atrophy is not ed. An extra-axial fluid collection is not noted.Fluid within the visualized sinuses and mastoids is not seen A cervical fracture is not visualized. No dislocation is noted. IMPRESSION: No acute intracranial abnormality is seen. A cervical fracture is not visualized. If the patient continues to have symptoms to suggest intracra nial /spinal cord pathology then MRI would be recommended
== END 2018-05-02 01:58 | disposition home or self-care (01) ==
LOC: ER 23:48
PROC: 0JQ00ZZ Repair Scalp Subcutaneous Tissue and Fascia, Open Approach (ICD-10-PCS; principal; 2018-05-02)
DX: S01.81XA Laceration without foreign body of other part of head, initial encounter (principal); W19.XXXA Unspecified fall, initial encounter; Z91.81 History of falling; Y93.01 Activity, walking, marching and hiking; Y92.9 Unspecified place or not applicable; I10 Essential (primary) hypertension
CPT/HCPCS: 70450; 72125; 99284